=== PATIENT | male | born 1945 | race Caucasian/White ===

== ENCOUNTER 2017-05-12 08:20 | Emergency (ER) | payer OTHER ==
[~2017-05-12] VITALS: Ht 172.7 cm; Wt 68.0 kg
[2017-05-12] MEDS ORDERED: ATIVAN1 MG PO (08:31)
[2017-05-12] MEDS ORDERED: OXYCONTIN10 M1 PO ×2 (08:32→08:35)
[2017-05-12] MEDS ORDERED: SEROQUEL 25 MG25 M1 PO (08:35)
[2017-05-12] MEDS ORDERED: SENNA8.6 MG PO (08:36)
[2017-05-12] MEDS ORDERED: ENOXAPARIN40 MG/0.1 SUBQ (08:36)
[2017-05-12] MEDS ORDERED: FOLIC ACID1 MG PO (08:36)
[2017-05-12] MEDS ORDERED: THERA-M1 EAC1 PO (08:37)
[2017-05-12] MEDS ORDERED: VITAMIN B-1100 M1 PO (08:37)
[2017-05-12 09:56] VITALS: BP 126/72
== END 2017-05-12 11:17 | disposition home or self-care (01) ==
LOC: ER 08:20
DX: S81.812A Laceration without foreign body, left lower leg, initial encounter (principal); N40.0 Benign prostatic hyperplasia without lower urinary tract symptoms; W19.XXXA Unspecified fall, initial encounter; Y93.89 Activity, other specified; Y92.89 Other specified places as the place of occurrence of the external cause; Y99.8 Other external cause status